=== PATIENT | female | born 1945 ===

== ENCOUNTER 2017-12-28 14:22 | Emergency (ER) | payer OTHER ==
[2017-12-28 14:22] VITALS: BMI 27.8
[2017-12-28 14:50] VITALS: RESP 18
--- NOTE | 2017-12-28 16:27 | C.PDOC ---
History Of Present Illness 72 year old female with PMHx of HTN, DM, arthritis presents to the ED c/o left sided neck pain radiating towards her left shoulder. Patient states she was seen by the clinic Doctor and was prescribed pain medication for it that she states is not helping. Patient is also c/o left foot swelling and pain. Patient reports she already has an appointment to see a Technical Staff Engineer. Patient denies injury, fall, trauma, fever, chills, nausea, vomit, diarrhea, rash, back pain, weakness, numbness. Time Seen by Provider: 12/28/17 16:18 Chief Complaint (Nursing): Upper Extremity Problem/Injury History Per: Patient History/Exam Limitations: no limitations Onset/Duration Of Symptoms: Days Current Symptoms Are (Timing): Still Present Quality: "Pain" Recent travel outside of the [place]: No Additional History Per: Patient Past Medical History Reviewed: Historical Data, Nursing Documentation, Vital Signs Vital Signs: Last Vital Signs Temp 98 F 12/28/17 14:47 Pulse 63 12/28/17 14:47 Resp 18 12/28/17 14:47 BP 121/76 12/28/17 14:47 Pulse Ox 98 12/28/17 16:57 - Medical History PMH: HTN, Hypercholesterolemia Surgical History: No Surg Hx Family History: States: Unknown Family Hx - Social History Hx Tobacco Use: No Hx Alcohol Use: No Hx Substance Use: No - Immunization History Hx Influenza Vaccination: Yes Hx Pneumococcal Vaccination: Yes Review Of Systems Constitutional: Negative for: Fever, Chills Cardiovascular: Negative for: Chest Pain Respiratory: Negative for: Shortness of Breath Musculoskeletal: Positive for: Neck Pain, Shoulder Pain Skin: Negative for: Rash Neurological: Negative for: Weakness, Numbness Physical Exam - Physical Exam Appears: Non-toxic, No Acute Distress Skin: Normal Color, Warm, Dry Head: Atraumatic, Normacephalic Eye(s): bilateral: Normal Inspection Neck: Normal ROM, No Midline Cervical Tenderness, Paracervical Tenderness (left sided, muscle spam ), Supple Back: Muscle Spasm (left trapezius) Extremity: Normal ROM, No Tenderness, Capillary Refill (< 2 seconds), No Swelling Pulses: Left Radial: Normal, Right Radial: Normal, Left Dorsalis Pedis: Normal, Right Dorsalis Pedis: Normal Neurological/Psych: Oriented x3, Normal Speech, Normal Cognition, Normal Motor, Normal Sensation Gait: Steady ED Course And Treatment O2 Sat by Pulse Oximetry: 98 (ON RA) Pulse Ox Interpretation: Normal Disposition Counseled Patient/Family Regarding: Diagnosis, Need For Followup, Rx Given - Disposition Referrals: Farhana Mendez MD [Staff Provider] - [facility] [Outside] Disposition: HOME/ ROUTINE Disposition Time: 16:53 Condition: GOOD Prescriptions: Acetaminophen [Tylenol 325mg tab] 650 mg PO Q6 #30 tab Lidocaine HCl [Aspercreme] 76.5 gm TP BID #1 cream..g. Instructions: Muscle Strain (DC) Forms: Gen Discharge Inst Citizen Of [place], [employer] (Citizen Of [place]) Print Language: CITIZ[place] - Clinical Impression Clinical Impression: Trapezius muscle strain - PA / SLP TEACHER / Resident Statement MD/DO has reviewed & agrees with the documentation as recorded. - Scribe Statement The provider has reviewed the documentation as recorded by the Scribe Kory Bryan All medical record entries made by the Scribe were at my direction and personally dictated by me. I have reviewed the chart and agree that the record accurately reflects my personal performance of the history, physical exam, medical decision making, and the department course for this patient. I have also personally directed, reviewed, and agree with the discharge instructions and disposition.
[2017-12-28 17:19] VITALS: BP 125/75; PULSE 62; TEMP 98.2; O2SAT 97
== END 2017-12-28 17:19 | disposition home or self-care (01) ==
LOC: C.ER 14:22
DX: S46.912A Strain of unspecified muscle, fascia and tendon at shoulder and upper arm level, left arm, initial encounter (principal); X58.XXXA Exposure to other specified factors, initial encounter; E11.9 Type 2 diabetes mellitus without complications; I10 Essential (primary) hypertension; E78.00 Pure hypercholesterolemia, unspecified

== ENCOUNTER 2018-06-21 11:52 | Emergency (ER) | payer OTHER ==
[2018-06-21 11:52] VITALS: BMI 27.8
--- NOTE | 2018-06-21 12:41 | C.PDOC ---
History Of Present Illness 73 y/o female,w/PMhx of rheumatoid arthritis, presents to the ER complaining of chronic left foot pain which has been present for the past 3 weeks. Patient states that she has been using icy rub creams and green ETOH with mild improvement. Patient states that she took Tylenol with mild improvement. She did not take Ibuprofen because it upsets her stomach. Denies having trauma, falls, injuries, weakness, and numbness. Time Seen by Provider: 06/21/18 12:37 Chief Complaint (Nursing): Lower Extremity Problem/Injury History Per: Patient History/Exam Limitations: no limitations Onset/Duration Of Symptoms: Days Current Symptoms Are (Timing): Still Present Severity: Moderate Past Medical History Reviewed: Historical Data, Nursing Documentation, Vital Signs Vital Signs: Last Vital Signs Temp 97.2 F L 06/21/18 12:22 Pulse 72 06/21/18 12:22 Resp 20 06/21/18 12:22 BP 111/60 06/21/18 12:22 Pulse Ox 100 06/21/18 12:22 - Medical History PMH: HTN, Hypercholesterolemia Other Surgeries: Hx of surgeries Family History: States: No Known Family Hx - Social History Hx Tobacco Use: No Hx Alcohol Use: No Hx Substance Use: No - Immunization History Hx Influenza Vaccination: Yes Hx Pneumococcal Vaccination: Yes Review Of Systems Except As Marked, All Systems Reviewed And Found Negative. Musculoskeletal: Positive for: Foot Pain (left foot pain) Neurological: Negative for: Weakness, Numbness Physical Exam - Physical Exam Appears: Non-toxic, No Acute Distress Skin: Normal Color, Warm, Dry Head: Atraumatic, Normacephalic Eye(s): bilateral: Normal Inspection Nose: Normal Oral Mucosa: Moist Neck: Supple Chest: Symmetrical Extremity: Normal ROM, No Deformity, Other ( onychomycosis of the left great toenail) Neurological/Psych: Oriented x3, Normal Speech Gait: Steady ED Course And Treatment O2 Sat by Pulse Oximetry: 100 (RA) Pulse Ox Interpretation: Normal - Other Rad L foot X-Ray: Interpreted by Me Reevaluation Time: 13:31 Reassessment Condition: Improved Medical Decision Making Medical Decision Making: chronic L foot pain normal films LOW susp of fungal toe infections beyond onychomycosis Disposition Doctor Will See Patient In The: Office Counseled Patient/Family Regarding: Studies Performed, Diagnosis - Disposition [facility]] [facility] [Outside] [facility] [Outside] Disposition: HOME/ ROUTINE Disposition Time: 13:33 Condition: GOOD Additional Instructions: sigue Tylenol o' Ibuprofeno para timo candelaria chronicos de arthritis rheumatica [place] salio NORMAL Sigue con ayoub medico o' con la [facility] Instructions: Rheumatoid Arthritis (DC) Forms: [employer] (Sinhala) Print Language: [place] - Clinical Impression Clinical Impression: Foot pain, left - Scribe Statement The provider has reviewed the documentation as recorded by the Scribe Herberth Metz Provider Attestation: All medical record entries made by the Scribe were at my direction and personally dictated by me. I have reviewed the chart and agree that the record accurately reflects my personal performance of the history, physical exam, medical decision making, and the department course for this patient. I have also personally directed, reviewed, and agree with the discharge instructions and disposition.
[2018-06-21 13:44] VITALS: BP 108/65; PULSE 65; RESP 18; TEMP 98
[2018-06-21] MEDS ORDERED: Bacitracin 500 Units/gm Oint Foilpak UD ONE (13:45)
[2018-06-21 13:55] VITALS: O2SAT 100
--- NOTE | 2018-06-21 14:03 | RAD ---
Date of service: 06/21/2018 PROCEDURE: Left Foot Radiographs. HISTORY: chronic L MTP pain, no trauma, h/o RA COMPARISON: Comparison made with prior radiographs of the left foot dated 01/31/2018. FINDINGS: BONES: No evidence of acute displaced fracture nor dislocation.. Small posterior and tiny plantar calcaneal enthesophytes. 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 IMPRESSION: No evidence of acute displaced fracture nor dislocation. Multi articular degenerative osteoarthritis including changes involving the tarsometatarsal joints.
== END 2018-06-21 13:44 | disposition home or self-care (01) ==
LOC: C.ER 11:52
DX: M79.672 Pain in left foot (principal)